=== PATIENT | male | born 1985 | race African-American/Black ===

== ENCOUNTER 2016-12-16 21:14 | Emergency (ER) | payer OTHER ==
[~2016-12-16] VITALS: Ht 180.3 cm; Wt 136.0 kg
[~2016-12-16 21:14] MED LIST: BENZ1TAB PO; CARB200 PO; RISP2TAB2 PO; SERO150T PO
[2016-12-16 22:02] VITALS: BP 188/112; PULSE 95; RESP 18; TEMP 98.3; O2SAT 97
[2016-12-16] MEDS ORDERED: SERO100T PO (22:46)
[2016-12-16] MEDS ORDERED: TEGR200T PO (22:47)
[2016-12-16] MEDS ORDERED: IBUP-232 PO (22:55)
--- NOTE | 2016-12-16 22:57 | PD ---
HPI Chief Complaint: Skin Problem Time Seen by Provider: 22:36 Travel History International Travel<30 days: No Contact w/Intl Traveler<30days: No Traveled to known affect area: No History of Present Illness HPI This 31-year-old male says he having some left-sided chest pain. He's been having the pain off and on for some time. He's had gynecomastia for many years. At one point surgery was contemplated but got canceled for some reason. He says pressor quite large and tender in many ways. He would like to have them removed. He has insurance but has not been able to get a primary care physician in [facility]. He has no history of glandular problems. He does have psychiatric history and is on medications. He's had some left-sided chest pain which is aggravated by direct palpation. PFSH Past Medical History Autoimmune Disease: No Anxiety: Yes Depression: Yes Cancer: No Cardiovascular Problems: No Diminished Hearing: No Endocrine: No Genitourinary: No Immune Disorder: No Musculoskeletal: No Psychiatric: Yes Reproductive: No Respiratory: No Immunizations Current: Yes Seizures: Yes (2 YEARS AGO POSSIBLY FROM WITHDRAWL) Past Surgical History Other Surgery: No Social History Alcohol Use: Yes (ETOH) Tobacco Use: Yes (2PPD) Substance Use: Yes (PAST HX MARIJUANA-denies current use) Allergies-Medications (Allergen,Severity, Reaction): Coded Allergies: No Known Allergies (Unverified , 12/16/16) Reported Meds & Prescriptions Reported Meds & Active Scripts Active Reported Tegretol (Carbamazepine) 200 Mg Tab 200 Mg PO BID Seroquel (Quetiapine Fumarate) 100 Mg Tab 150 Mg PO HS Review of Systems General / Constitutional: No: Fever, Chills Eyes: No: Diploplia, Blurred Vision HENT: No: Headaches, Vertigo Cardiovascular: No: Chest Pain or Discomfort, Palpitations Respiratory: No: Cough, Shortness of Breath Gastrointestinal: No: Vomiting, Diarrhea Genitourinary: No: Urgency, Frequency Musculoskeletal: No: Myalgias Skin: No Rash, No Itching Neurologic: No: Weakness Hematologic/Lymphatic: No: Easy Bruising Physical Exam Narrative Well-developed male SKIN: Focused skin assessment warm/dry. HEAD: Atraumatic. Normocephalic. EYES: Pupils equal and round. No scleral icterus. No injection or drainage. ENT: No nasal bleeding or discharge. Mucous membranes pink and moist. NECK: Trachea midline. No JVD. CARDIOVASCULAR: Regular rate and rhythm. No murmur appreciated. The breasts are enlarged bilaterally. There is tenderness in the left costochondral area RESPIRATORY: No accessory muscle use. Clear to auscultation. Breath sounds equal bilaterally. GASTROINTESTINAL: Abdomen soft, non-tender, nondistended. Hepatic and splenic margins not palpable. MUSCULOSKELETAL: No obvious deformities. No clubbing. No cyanosis. No edema. NEUROLOGICAL: Awake and alert. No obvious cranial nerve deficits. Motor grossly within normal limits. Normal speech. PSYCHIATRIC: Appropriate mood and affect; insight and judgment normal. Data Data Last Documented VS Vital Signs Date Time Temp Pulse Resp B/P (MAP) Pulse Ox O2 Delivery O2 Flow Rate FiO2 12/16/16 22:02 98.3 95 18 188/112 (137) 97 MDM Medical Decision Making Medical Screen Exam Complete: Yes Emergency Medical Condition: Yes Medical Record Reviewed: Yes Differential Diagnosis Differential includes chest wall pain, gynecomastia Narrative Course I have spoken with the patient and advised him that he needs to follow-up with his regular doctor for further evaluation of this issue and possible referral to surgery. I we will write a prescription for ibuprofen for some symptomatic relief of his chest wall pain Diagnosis Primary Impression: Gynecomastia Additional Impression: Chest wall pain Scripts Ibuprofen (Ibuprofen) 600 Mg Tab 600 MG PO Q6H Y for Pain/Inflammation, #40 TAB 0 Refills Prov: Derik Oneal MD 12/16/16 Disposition: 01 DISCHARGE HOME Condition: Stable Derik Oneal MD Dec 16, 2016 22:57
[2016-12-16 23:04] VITALS: BP 134/81
== END 2016-12-16 23:04 | disposition home or self-care (01) ==
LOC: PHED 21:14
DX: N62 Hypertrophy of breast (principal); R07.89 Other chest pain; F17.200 Nicotine dependence, unspecified, uncomplicated; Z86.59 Personal history of other mental and behavioral disorders; Z86.69 Personal history of other diseases of the nervous system and sense organs
CPT/HCPCS: 99283